=== PATIENT | female | born 1945 | race Caucasian/White ===

== ENCOUNTER 2018-07-06 23:56 | Emergency (ER) | payer OTHER ==
[~2018-07-06] VITALS: Ht 152.4 cm; Wt 56.7 kg
[~2018-07-06 23:56] MED LIST: CIPROFLOXACIN500 M1; JANTOVEN1 MG PO; JANTOVEN2 MG PO; LOPRESSOR 12.12.5 MG PO; PHENERGAN 25 MG25 M1 PO; PROAIR HFA8.5 GM IH; SIMVASTATIN40 MG PO; TRAMADOL 50 MG50 MG; VITAMIN D400 UNI1 PO; XANAX 0.25 MG0.25 MG PO
[2018-07-07] MEDS ORDERED: FISH OIL 1,001000 M2 (00:12)
[2018-07-07 00:59] LABS: ABSOLUTE BASOPHILS 0.1 thou/uL (0.0-0.2); ABSOLUTE EOSINOPHILS 0.4 thou/uL (0.0-0.7); ABSOLUTE LYMPHOCYTES 1.8 thou/uL (0.8-5.3); ABSOLUTE MONOCYTES 0.5 thou/uL (0.0-1.2); ABSOLUTE NEUTROPHILS 3.2 thou/uL (1.6-8.1); BASOPHILS 1.1 %; EOSINOPHILS 6.5 %; HEMATOCRIT 32.7 % (37.0-47.0); HEMOGLOBIN 10.9 gm/dL (12.0-15.0); LYMPHOCYTES 30.3 %; MCH 30.8 pg (26.0-34.0); MCHC 33.4 g/dL (28.0-37.0); MPV 7.6 fl. (7.2-11.1); NUCLEATED RBCS 0 /100WBC; PLATELET COUNT* 276 thou/uL (150-400); POLYS 53.1 %; RBC 3.55 mil/uL (4.20-5.00); RDW-CV 12.3 % (10.5-14.5); WBC 6.1 thou/uL (4.0-11.0)
[2018-07-07 01:21] LABS: ANION GAP 4 mmol/L (7-16); BUN 15 mg/dL (7-18); CALCIUM 8.8 mg/dL (8.5-10.1); CHLORIDE 106 mmol/L (98-107); CO2 30 mmol/L (21-32); CREATININE 1.2 mg/dL (0.6-1.3); GLUCOSE 104 mg/dL (70-99); POTASSIUM 3.5 mmol/L (3.5-5.1); SODIUM 140 mmol/L (136-145); TROPONIN-I LEVEL <0.06 ng/mL (<0.06)
[2018-07-07 01:23] LABS: ALBUMIN 3.3 g/dL (3.4-5.0); ALKALINE PHOSPHATASE 88 U/L (46-116); SGOT 27 U/L (15-37); SGPT 25 U/L (30-65); TOTAL BILIRUBIN 0.5 mg/dL (<0.1-1.0); TOTAL PROTEIN 7.5 g/dL (6.4-8.2)
[2018-07-07] MEDS ORDERED: TOPROL XL25 MG PO (03:07)
[2018-07-07 03:19] VITALS: BP 145/78
--- NOTE | 2018-07-07 15:07 | EKG ---
[place] [address] ELECTROCARDIOGRAM REPORT Name: VAN MCCANN Room: [facility]#: [id number] Admission: 07/06/18 Attend Phys: Discharge: 07/07/18 Date of : 41 Report #: [id number] THIS REPORT FOR: //name// [facility] ED Test Date: 2018-07-07 Test Time: 00:17:09 Pat Name: VAN MCCANN Department: Room: Gender: F Roll Forger: Tano JARRELL : 1945 Requested By: Adelina Beard Order Number: [id number] MD: Lobo Frazier Measurements Intervals [place] Rate: 77 P: 63 MI: 268 QRS: 31 QRSD: 97 T: 33 QT: 422 QTc: 478 Interpretive Statements Sinus rhythm Prolonged MI interval Compared to ECG 02/04/2011 06:37:17 No significant changes Electronically Signed On 07-07-2018 15:07:25 CDT by Lobo Frazier [email or web address] <ELECTRONICALLY SIGNED> By: Lobo Frazier MD, [facility] 07/07/18 1507 Lobo Frazier MD, FACC /EPI
== END 2018-07-07 03:20 | disposition home or self-care (01) ==
LOC: M.ERS 23:56
PROVIDERS: Personal Emergency Response Attendant
DX: I10 Essential (primary) hypertension (principal); F41.9 Anxiety disorder, unspecified; Z90.49 Acquired absence of other specified parts of digestive tract; Z88.6 Allergy status to analgesic agent; Z88.8 Allergy status to other drugs, medicaments and biological substances